=== PATIENT | male | born 1940 | race Caucasian/White ===

== ENCOUNTER → 2022-02-20 13:24 | Outpatient (BNVA) | payer BC, SELFPAY | PROVIDERS: PCP Internal Medicine; Visit Provider Psychiatry & Neurology Neurology | DX: G20 Parkinson's disease (principal) ==

== ENCOUNTER → 2022-12-17 14:32 | Outpatient (BNVA) | payer BC, SELFPAY | PROVIDERS: PCP Internal Medicine; Visit Provider Psychiatry & Neurology Neurology | DX: G20 Parkinson's disease (principal); F03.90 Unspecified dementia, unspecified severity, without behavioral disturbance, psychotic disturbance, mood disturbance, and anxiety; I95.1 Orthostatic hypotension ==

== ENCOUNTER 2023-07-29 11:39 | Outpatient (AMB) | payer BC, SELFPAY ==
--- NOTE | 2023-07-29 11:40 | A.OFFVIS_ITS ---
Intake Vital Signs 07/29/23 11:41 Height 5 ft 7 in Weight 166 lb 6 oz BMI 26.1 BP 132/70 Blood Pressure Location Rt brachial Position Sitting Respiration 16 Pulse 57 Pulse Source Pulse Oximeter Pulse Oximetry (%) 95 Oxygen Delivery Method Room Air Intake Visit Reasons: 6m follow up-confirmed Intake Note: Pt presents tot he office for 6 month follow up for Dementia. He is here with his Anabelle. She states he's ding worse, balance is not good and he's had several falls. Speech is slowing down, volume is weak . Allergies doxycycline Allergy (Mild, Uncoded 07/29/23 11:47) unknown Medication List - Last Reconciled 07/29/23 by Carin Casillas MD amlodipine 2.5 mg PO DAILY carbidopa-levodopa 25-100 mg 2 tabs PO TID 30 days carbidopa-levodopa 50-200 mg ER 1 tab PO BEDTIME droxidopa (Northera) 100 mg PO TID lisinopril 40 mg PO DAILY memantine 10 mg PO BID pravastatin 40 mg PO BEDTIME HPI HPI Comments History of Present Illness Details 83y/o male with Parkinsons disease and d tosha comes for follow up. He still has frequent falls.He falls even without a walker. Its usually in the bathroom or when he is turning He is doing better now with drinking fluids . He needs reminder to use walker His cognition is stable He needs help with taking medications- his organizes his pill box but he gets confused with it. He uses incontinence briefs . He denies hallucinations.\Speech and swallowing are worse. He has rare hallucinations [facility], [facility] Medical History Neuropathy Hyperlipidemia Lung cancer Colon cancer HTN (hypertension) Diabetes Family History Father Heart disease Family/Other Diabetes Cancer Social History Household Members: Spouse Alcohol intake: former Patient Tobacco Use Status: Former Tobacco user Review of Systems Neuro Reports confusion Psych Reports confusion Physical Exam Vital Signs: Last Vital Signs Pulse 57 07/29/23 11:41 Resp 16 07/29/23 11:41 BP 132/70 07/29/23 11:41 Pulse Ox 95 07/29/23 11:41 Oxygen Delivery Method Room Air 07/29/23 11:41 BMI result Body Mass Index 26.1 Const General: cooperative and confusion Orientation/consciousness: confusion Neuro Other: severely decreased facial expression and blink speech- hypophonia difficulty comprehending confused with dates and time No tremors Mild dyskinesias able to follow simple commands FFM and foot taps - slow but able to do it Unable to evaluate his gait General: confusion Assessment & Plan Assessment & Plan (1) Parkinson's disease: Code(s): G20 - Parkinson's disease (2) Dementia: Code(s): F03.90 - Unspecified dementia, unspecified severity, without behavioral disturbance, psychotic disturbance, mood disturbance, and anxiety (3) Orthostatic hypotension: Code(s): I95.1 - Orthostatic hypotension Plan sinemet 25/100 2tabs tid continue sinemet CR 50/200 qhs namenda 10mg bid encouraged him to use walker consistently - discussed fall prevention Increase droxidopa 200mg tid Medications: Changed From carbidopa-levodopa 25-100 mg 2 tabs PO TID 180 tabs 5RF 30 days To carbidopa-levodopa 25-100 mg 2 tabs PO TID 540 tabs 5RF 90 days From droxidopa (Northera) give consistently with OR without food, upon rising, at midday, late PM/at least 4hrs before bedtime 100 mg PO TID 90 caps 5RF To droxidopa give consistently with OR without food, upon rising, at midday, late PM/at least 4hrs before bedtime 200 mg PO TID 270 caps 5RF Coding Level of Care Code Est Pt Level 4 (83615) Diagnoses Parkinson's disease G20 Dementia F03.90 Orthostatic hypotension I95.1
[2023-07-29 11:41] VITALS: BP 132/70; PULSE 57; RESP 16; O2SAT 95; BMI 26.1
== END 2023-07-29 16:00 ==
PROVIDERS: Visit Provider Psychiatry & Neurology Neurology
DX: G20.B1 Parkinson's disease with dyskinesia, without mention of fluctuations (principal); F02.80 Dementia in other diseases classified elsewhere, unspecified severity, without behavioral disturbance, psychotic disturbance, mood disturbance, and anxiety; I95.1 Orthostatic hypotension; R29.6 Repeated falls
CPT/HCPCS: 99214

== ENCOUNTER → 2023-07-29 11:39 | Outpatient (BNVA) | payer BC, SELFPAY | PROVIDERS: Visit Provider Psychiatry & Neurology Neurology | DX: F03.90 Unspecified dementia, unspecified severity, without behavioral disturbance, psychotic disturbance, mood disturbance, and anxiety (principal); I95.1 Orthostatic hypotension ==